=== PATIENT | female | born 2000 | race Caucasian/White ===

== ENCOUNTER → 2020-05-13 15:47 | Outpatient (CLI) | payer OTHER, SELFPAY ==
[2020-05-13 17:30] LABS: Glucose Challenge Gest 1H 50g 98 mg/dL (70-140)
[2020-05-13 17:34] LABS: Color, Urine Yellow (Yellow); Glucose, Dipstick Normal (Normal); Ketone-Dipstick 5 mg/dl (Negative); Leukocyte Esterase-Dipstick Negative /ul (Negative); Nitrite-Dipstick Negative (Negative); Occult Blood-Urine Negative /ul (Negative); Protein-Dipstick 15 mg/dl (Negative); Urine Bilirubin Dipstick Negative (Negative); Urine Clarity Clear (Clear); Urine Urobilinogen Normal (Normal)
[2020-05-13 17:40] LABS: Absolute Lymphocyte Count 1.59 X10^3/uL (0.83-4.51); Absolute Neutrophil Count 7.7 X10^3/uL (2.0-7.7); Basophil# 0.02 X10^3/uL; Basophil% 0.2 % (0-1); Eosinophil# 0.08 X10^3/uL; Eosinophils% 0.8 % (0-5); Hematocrit 36.4 % (37-47); Hemoglobin 12.1 g/dL (12.0-15.0); Lymphocyte # 1.59 X10^3/ul (4.0); Lymphocyte % 16.2 % (19-41); Mean Corp Hgb Conc 33.2 g/dL (32-36); Mean Corpuscular Hgb 32.3 pg (27.0-32.0); Mean Corpuscular Volume 97.1 fL (81-99); Mean Platelet Vol. 10.3 fl (6.2-12.0); Monocyte# 0.34 X10^3/uL; Monocyte% 3.5 % (0-10); NRBC Flagged by Analyzer 0 % (0-5); Neutrophil # 7.68 X10^3/uL (2.7-7.7); Neutrophil % 78.2 % (47-70); Platelet Count 247 K/mm3 (150-450); RBC Distribution Width CV 12.2 % (11.6-14.6); RBC Distribution Width SD 43.4 fl (35.1-43.9); Red Blood Count 3.75 M/mm3 (4.2-5.4); White Blood Count 9.8 K/mm3 (4.4-11.0)
[2020-05-13 17:48] LABS: Amphetamine Urine VISTA NEGATIVE (<1000 ng/mL); Barbiturate Urine VISTA NEGATIVE (< 200 ng/mL); Benzodiazepine Urine VISTA NEGATIVE (< 200 ng/mL); Cocaine Urine VISTA NEGATIVE (< 300 ng/mL); Ecstacy Urine VISTA NEGATIVE (< 500 ng/mL); Methadone Urine VISTA NEGATIVE (< 300 ng/mL); PCP Urine VISTA NEGATIVE (< 25 ng/mL); THC Urine VISTA NEGATIVE (< 50 ng/mL); Vista UDS pH Range 6
[2020-05-13 18:34] LABS: HIV - WCH Non-Reactive (Nonreactive); Hepatitis B Surface Antigen Non-Reactive (Nonreactive); Hepatitis C Antibody Non-Reactive (Nonreactive); Rubella IgG 228.1 IU/mL
[2020-05-16 01:11] LABS: Prenatal RPR NONREACTIVE (NONREACTIVE)
[2020-05-17 03:06] LABS: Chlamydia By Nucleic Acid AMP Negative (Negative)
[2020-05-17 06:33] LABS: Gonococcus By Nucleic Acid AMP Negative (Negative)
== END ==
PROVIDERS: Visit Provider Student in an Organized Health Care Education/Training Program
DX: Z34.82 Encounter for supervision of other normal pregnancy, second trimester (principal)
CPT/HCPCS: 36415; 80307; 81002; 82950; 85025; 86703; 86762; 86803; 87086; 87340; 87491; 87591

== ENCOUNTER → 2020-07-23 13:12 | Outpatient (CLI) | payer OTHER, SELFPAY | PROVIDERS: Visit Provider Student in an Organized Health Care Education/Training Program | DX: Z36.85 Encounter for antenatal screening for Streptococcus B (principal) | CPT/HCPCS: 87081 ==

== ENCOUNTER 2020-08-14 21:20 | Inpatient (IN) | payer OTHER, SELFPAY ==
[2020-08-14] VITALS (22 sets, daily range): BP systolic 78–127; BP diastolic 49–77; PULSE 81–102; TEMP 36.8–37.1; O2SAT 84–99; BMI 25.4
--- NOTE | 2020-08-14 21:29 | PCM.HPOB.BLA ---
- Problem List (1) 39 weeks gestation of Status: Acute History and Physical Date of Admission: 08/14/20 ACOG ANTEPARTUM RECORD - HISTORY AND PHYSICAL (08/14/2020) Name: NENA STARK History of this : This is a 19 year old presents at 39 wks + 5 days gestation with c/o contractions. OB Physician: Mari Croft Alicia's Physician: Dr Aris Eubanks. ...................................................................... : [birth year] Age: 19 Address: [address] [place] [address] Phone: ([phone] Insurance Carrier: [email or web address] [id number] Emergency Contact: XAVIER STARK/MOTHER [phone] ...................................................................... Final RADHA: 08/16/20 By Ultrasound: PARITY: (G-Total Pregnancies P-Fullterm,Premature,Induced AB,Spont AB, Ectopics, Multiple,Living) RADHA CONFIRMATION: By LMP: 10/06/19 Final RADHA: 08/16/20 OB PROBLEM LIST: ALLERGIC TO AMOXICILLIN Needs Jun 22 or Jul 27 Childbirth Class. 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 Illicit Drug Use - denies use of street drugs Sexual Activity - never been Residence - Lives w/parents Place of - [place] Hours Worked - 40 hours per week Spouse-Sig Other Name - Mark Ayala Spouse-Sig Other Occupation - construction framing PRIOR DELIVERY HISTORY DEL DATE GEST LAB WT LB WT OZ TYPE ANES LABOR TX ANTEPARTUM FLOW CHART VISIT GE RTC FU F F MN U U DATE WK MD WKS HT PN HR M SS BP ED WT MN GL D EF ST __ ____ ___ __ __ ___ __ __ __ ___ __ __ __ ___ __ Jul 39 CM 1 39 V + + 124/82 0 134 tr ne 4 60 -2 19 Roberto 38 CM 1 38 V + + 118/62 0 134 - - 3 60 -2 14 Roberto 37 CM 1 37 V + + 116/72 0 132 - - 3 60 -2 05 Roberto 36 CM 1 36 V + + 106/74 0 131 ne ne 3 60 -3 29 Dec 35 CM 1 35 V + + 122/62 0 130 - - 23 Dec 34 JMW 1 36 + + 100/76 0 130 - - 10 Dec 32 CM 2 32 V + + 116/68 0 126 - - 23 Nov 30 CM 2 30 + + 104/72 0 126 tr ne Jun 15 CM 2 28 + + 114/66 0 122 - - May 13 CM 2 26 + + 100/74 0 119 tr - ANTEPARTUM NOTE(S): Aug 13 2020: Aug 06 2020: Aug 01 2020: Jul 23 2020: Jul 16 2020: Jul 10 2020: US, Good FM Jun 27 2020: Jun 10 2020: May 27 2020: May 13 2020: feeling well. Labs, NOB papers and CT/NG done today. AM COMPREHENSIVE ANTEPARTUM NOTE(S): Aug 13 2020: Nena is here for PNV. Feeling well with good FM. No edema noted. No complaints or concerns. Urine tr and neg. LSS Aug 13 2020: 39/4w visit. Membrane sweep done. F/u 1w. CM Aug 06 2020: Nena reporting good FM. No Sx labor. She is asking for a vag exam. kb Aug 06 2020: 38/4w visit. Growth today AGA. CE unchanged. F/u 1 w. CM Aug 01 2020: GBS negative 07/23/20. Reports good FM. Ctx's occurring, but not every day. Denies leaking fluid. Denies spotting. Sent to [facility] to pre-register. kb Aug 01 2020: 37/6w visit. Occasional contractions. Feeling well otherwise. F/u 1w CM Jul 23 2020: Nena is here for PNV. States she is feeling real good. No complaints. Good FM. No issues with edema. LARC form signed and declined. Urine dipped neg and neg today. LSS Jul 23 2020: 36/4w visit. Declined larc. 3 cm. GBS done today. F/u 1w. US week of 08/07. CM Jul 16 2020: Nena reports feeling well. Good FM. Voicing no concerns. Jul 16 2020: 35/4w visit. Keep RADHA of 08/16/20 based on LMP/ACOG recommendations. Consider growth at 38w. F/u 1w. CM Jul 10 2020: Nena is here for a PNV/ US. Good FM. No edema present. No concerns expressed at this time. MK Jun 27 2020: Nena is doing well. Good FM. Voicing no concerns. kbm Jun 27 2020: 32/6w visit. Late PNC - Growth at 34w, scheduled per pt. F/u 2w. cm Jun 10 2020: TELEHEALTH NOB-- Nena is a 19 yo G 1 P 0 with RADHA 1-29-21 per chart although she states Aug 06-. She plans a vag del at [facility] uncertain of epidural, using Dr Aris Eubanks for post discharge ped care. She is not sure of feeding method yet. a winter baby when influenza, RSV, Covid are high is enc. 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 She plans a 12 week KAREN. FOB is Mark Ayala who works in [employer]. Nena lives w her parents. She is allergic to Amoxicillin. She has NKA to latex, food or the environment. Her diet is balanced w occ coffee and 2+ liters of water daily. She's a lifetime non smoker, denies street drug use and drinks alcohol occ but not in pg. She is active w her job and at home. Walking 20 min most days enc. Genetics Screening form completed at prev visit noting no family issues and genetic testing is declined. Warning signs in pg discussed along w reaching the office after hours, wearing the seatbelt really low on her abd, lifting restriction of 20-25# and the importance of protein in her diet w understanding voiced. They have no cats but she is aware of litter box issues. She has a copy of What to Expect. EPDS score zero. Nena has had a varicella vaccine. Office Childbirth and classes explained and suggested. Enc to call w any concerns. Visit took 1/2 h. Gabriela DE JESUS. Jun 10 2020: Nena is here for PNV. States she feels good with good FM. No edema noted. No problems with N/V. Urine dipped tr and neg. Had her telehealth today. No concerns at this time. LSS Jun 10 2020: 30/3w visit. Feeling well. F/u 2w. Growth at 34w. CM May 27 2020: Nena reporting good FM. Voicing no concerns. Needs televisit w/nurse. kbm May 27 2020: 28/3w visit. Feeling well. Labs reviewed and wnl. Declines TDap. Growth us 34w for late PNC. NOB visit scheduled. F/u 2w CM May 13 2020: 26/3w visit. Patient feeling much more settled with , smiling and happy. Denies genetic disorders. Declines genetic screening and carrier screening. GC/CT done today along with PNP and glucola. Will plan for 34w US for growth due to late PNC. Mom with patient today. f/u 2w. CM May 06 2020: Nena is a 19 yr old here for evaluation of secondary amenorrhea. Menarche age 12. Periods monthly until LMP in October, which was salesperson jewelry and shorter than her typical. Last normal period end of September. Also reporting abdominal pain which comes and goes. Remembers constipation in the beginning, but that has resolved. States she has never been sexually active. In reviewing her Hx, asked if anything unusual happened in September or October to which she replied she had gone to [facility] for 10 days and did a lot of drinking. No medical problems. No abdominal surgeries. Non-smoker. kbm REVIEW OF SYSTEMS: GENERAL - Denies fever, or chills SKIN - Denies rash, new skin lesions, or change in moles EYES - Denies blurred vision, or change in visual acuity EARS - Denies ear pain, or difficulty hearing NOSE - Denies nasal congestion, discharge, or bleeding MOUTH - Denies sore throat, or difficulty swallowing NECK - Denies pain or swelling RESPIRATORY - Denies shortness of breath, cough, wheezing CARDIOVASCULAR - Denies palpitations, chest pain, orthopnea, PND, peripheral edema, syncope or claudication GASTROINTESTINAL - Denies nausea, vomiting, diarrhea, constipation, Denies abdominal pain, melena and or bright red blood GENITOURINARY - Denies dysuria, frequency of urination, urgency, or hesitancy MUSCULOSKELETAL - Denies joint or muscle pain, or back pain NEUROLOGICAL - Denies localized numbness, weakness, or tingling PSYCHIATRIC - Denies depression, anxiety, substance abuse or suicide attempts ENDOCRINE - Denies heat or cold intolerance, weight loss or gain, increasing thirst HEMATO-IMMUNOLOGIC - Denies easy bruising, bleeding, oral ulcerations or recurrent infections GENETICS SCREENING: Age 35+ years: No Thalassemia: No Neural Tube Defect: No Down Syndrome: No ASHLY-SACHS: No Sickle Cell Disease: No Hemophilia: No Musc. Dystrophy: No Cystic Fibrosis: No-declines screening [place] Chorea: No Mental Retardation: No Fragile X: No Other genetic: No Other defects: No SABs/still births: No Drugs since LMP: No INFECTION HISTORY: High risk AIDS: No High risk Hepatitis: No Exposed to TB: No Exposed to Herpes: No Rash/viral illness since LMP: No History of STD: No MENSTRUAL HISTORY: *Menses Amount/Duration: 4-5 daysMenses Regularity: missed periodsMenarche (Age Onset): 12* PAST SUMMARY: PARITY: 1. Total Pregnancies............ 1 2. Full Term Pregnancies........ 0 3. Premature.................... 0 4. Abortions - Induced.......... 0 5. Abortions - Spontaneous...... 0 6. Ectopics..................... 0 7. Multiple Births.............. 0 8. Living Children.............. 0 LAB TEST(S) ORDERED SINCE:11/20/19 05/17/2020 CHLAMYDIA/GC MO APTIMA 05/16/2020 RPR 05/16/2020 CULTURE, URINE 05/13/2020 URINE DRUG SCREEN (VISTA) 05/13/2020 URINALYSIS, ROUTINE (DIPSTICK) 05/13/2020 RUBELLA IGG 05/13/2020 T AND S-NO CHARGE W/PNP 05/13/2020 HIV - [facility] 05/13/2020 HEPATITIS C ANTIBODY 05/13/2020 HEPATITIS B SURFACE ANTIGEN 05/13/2020 GLUCOSE CHALLENGE GEST 1H 50G 05/13/2020 CBC W/DIFF, AUTOMATED 07/26/2020 CULTURE, GROUP B STREPTOCOCCUS == ==== Order Observation Description Value Ref_Range A* Site == ==== CULTURE, GROUP NOTE JARA CHLAMYDIA/GC NA NOTE JARA CHLAMYDIA/GC NA CHLAMY,NUC ACID Negative Negative LC CHLAMYDIA/GC NA GC BY NUC ACID Negative Negative LC Performed at: =[facility] [id number] Human Performance Technologist: Rashmi Corbin MD, Phone: [phone] CULTURE, URINE NOTE JARA RPR NOTE JARA RPR RPR NONREACTIVE NONREACTIVE ML HEPATITIS C ANT NOTE JARA HEPATITIS C ANT HEPATITIS C AB Non-Reactive Nonreactive ML Non Reactive: < 0.8 Equivocal: >/= 0.8 to < 1.0 Reactive: >/= 1.0 The CDC recommends that a reactive/equivocal HCV antibody result be followed up by the HCV Nucleic Acid Amplification test (322654) HEPATITIS B ALANA NOTE JARA HEPATITIS B ALANA HEPB SURFACE AG Non-Reactive Nonreactive ML HIV - [facility] NOTE JARA HIV - [facility] HIV - [facility] Non-Reactive Nonreactive ML RUBELLA IGG NOTE JARA RUBELLA IGG RUBELLA IGG 228.1 IU/mL ML Antibody results Interpretation of Immune Status < 5 IU/ml Presumed Non-immune 5 - < 10 IU/ml Equivocal > or = 10 IU/ml Presumed Immune Reason for Type AND Screen/Red Cells: Surgery? [facility]~[address] [place], [address]~ T AND BLOOD TYPE GEL A POSITIVE N ML T AND AB SCREEN GEL NEGATIVE N ML URINE DRUG SCRE NOTE JARA URINE DRUG SCRE TO BE CONFIRMED ML CONFIRMATORY TESTING FOR ALL POSITIVE URINE DRUG SCREEN RESULTS WILL ONLY BE SENT OUT UPON PHYSICIAN ORDER. VISTA Urine Drug Screen methods provide only preliminary analytical test results. A more specific alternate chemical method must be used in order to obtain a confirmed analytical result. Gas chromatography/mass spectrometery (GC/MS) is the preferred confirmatory method. Clinical consideration and professional judgement should be applied to any drug of abuse test result, particularly when preliminary positive results are used. URINE TCA TESTING MUST BE ORDERED SEPARATELY. USE TEST MNEMONIC: UTCA URINE DRUG SCRE VISTA UDS PH 6 ML URINE DRUG SCRE AMPHETAMINES NEGATIVE <1000 ng/mL ML URINE DRUG SCRE BARBITIURATES NEGATIVE < 200 ng/mL ML URINE DRUG SCRE BENZODIAZIPINE NEGATIVE < 200 ng/mL ML URINE DRUG SCRE COCAINE NEGATIVE < 300 ng/mL ML URINE DRUG SCRE ECSTACY NEGATIVE < 500 ng/mL ML URINE DRUG SCRE METHADONE NEGATIVE < 300 ng/mL ML URINE DRUG SCRE OPIATES NEGATIVE < 300 ng/mL ML URINE DRUG SCRE PCP NEGATIVE < 25 ng/mL ML URINE DRUG SCRE THC NEGATIVE < 50 ng/mL ML CBC W/DIFF, AUT NOTE JARA CBC W/DIFF, AUT WBC 9.8 K/mm3 4.4-11.0 ML CBC W/DIFF, AUT RBC 3.75 M/mm3 4.2-5.4 L ML CBC W/DIFF, AUT HGB 12.1 g/dL 12.0-15.0 ML CBC W/DIFF, AUT HCT 36.4 % 37-47 L ML CBC W/DIFF, AUT MCV 97.1 fL 81-99 ML CBC W/DIFF, AUT MCH 32.3 pg 27.0-32.0 H ML CBC W/DIFF, AUT MCHC 33.2 g/dL 32-36 ML CBC W/DIFF, AUT RDW CV 12.2 % 11.6-14.6 ML CBC W/DIFF, AUT RDW SD 43.4 fl 35.1-43.9 ML CBC W/DIFF, AUT PLT 247 K/mm3 150-450 ML CBC W/DIFF, AUT MPV 10.3 fl 6.2-12.0 ML CBC W/DIFF, AUT NEUT% 78.2 % 47-70 H ML CBC W/DIFF, AUT LY% 16.2 % 19-41 L ML CBC W/DIFF, AUT MONO% 3.5 % 0-10 ML CBC W/DIFF, AUT EO% 0.8 % 0-5 ML CBC W/DIFF, AUT BASO% 0.2 % 0-1 ML CBC W/DIFF, AUT IM GRAN % 1.100 % 0.0-0.9 H ML IG% - Immature Granulocytes (promyelocytes, myelocytes and metamyelocytes) > 1% indicates that a LEFT SHIFT is Present. CBC W/DIFF, AUT ABSOLUTE NEUT 7.7 X10 3/uL 2.0-7.7 ML CBC W/DIFF, AUT ABSOLUTE LYMPH 1.59 X10 3/uL 0.83-4.51 ML CBC W/DIFF, AUT NRBC, FLAGGED 0 % 0-5 ML URINALYSIS, ROU NOTE JARA URINALYSIS, ROU COLOR Yellow Yellow ML URINALYSIS, ROU CLARITY Clear Clear ML URINALYSIS, ROU GLUCOSE, UR Normal mg/dl Normal ML URINALYSIS, ROU BILIRUBIN URINE Negative mg/dL Negative ML URINALYSIS, ROU KETONE UR 5 mg/dl Negative H ML URINALYSIS, ROU SP.GR. DIPSTX 1.020 1.002-1.030 ML URINALYSIS, ROU PH UR 6.0 5.0 - 8.0 ML URINALYSIS, ROU PROT DIPSTX 15 mg/dl Negative H ML URINALYSIS, ROU UROBILI Normal mg/dl Normal ML URINALYSIS, ROU NITRITE UR Negative Negative ML URINALYSIS, ROU OCCULT BLOOD-UR Negative /ul Negative ML URINALYSIS, ROU LEUK ESTERASE Negative /ul Negative ML GLUCOSE CHALLEN NOTE JARA GLUCOSE CHALLEN GLU GEST 50G 1H 98 mg/dL 70-140 ML MOR Culture Group B Beta Streptococcus is not isolated. Urine Culture Culture exhibits no growth. PHYSICAL EXAMINATION Vital Signs Temp 98.3 F 08/14/20 19:49 Pulse 86 08/14/20 19:49 BP 110/76 08/14/20 19:49 Pulse Ox 98 08/14/20 19:49 Intake & Output 08/12/20 08/13/20 08/14/20 23:59 23:59 23:59 Weight: 61.2 kg General Appearence: 19 yo female in no acute distress Vital Signs: AF, VSS Heart: RRR without murmurs, rubs or gallops Lungs: CTA x 2 Breasts: deferred Abdomen: gravid Pelvis: Cervix: 4.5/90/-2 Presentation: cephalic Fetus: Size: EFW 3608 g at US on 08/06/20 (HC/AC 0.98) Movement: present Heart: 130, moderate variability, + accelerations, no decelerations A/P 19yo G1 @ 39 5/7wga in labor, Cat I FHR -Admit in labor -GBS neg -Pain management per patient request
[2020-08-14] MEDS: Lactated Ringers 1,000 ML 50 ML IV (21:38)
[2020-08-14] MEDS: Lactated Ringers 500 ML 999 ML IV ×2 (21:43→23:30)
[2020-08-14 21:59] LABS: Absolute Lymphocyte Count 2.38 X10^3/uL (0.83-4.51); Absolute Neutrophil Count 11.1 X10^3/uL (2.0-7.7); Basophil# 0.04 X10^3/uL; Basophil% 0.3 % (0-1); Eosinophil# 0.08 X10^3/uL; Eosinophils% 0.6 % (0-5); Hematocrit 35.3 % (37-47); Hemoglobin 12.4 g/dL (12.0-15.0); Lymphocyte # 2.38 X10^3/ul (4.0); Lymphocyte % 16.7 % (19-41); Mean Corp Hgb Conc 35.1 g/dL (32-36); Mean Corpuscular Hgb 33.3 pg (27.0-32.0); Mean Corpuscular Volume 94.9 fL (81-99); Mean Platelet Vol. 11.8 fl (6.2-12.0); Monocyte# 0.57 X10^3/uL; NRBC Flagged by Analyzer 0 % (0-5); Neutrophil # 11.09 X10^3/uL (2.7-7.7); Neutrophil % 77.6 % (47-70); Platelet Count 243 K/mm3 (150-450); RBC Distribution Width CV 12.2 % (11.6-14.6); RBC Distribution Width SD 42.2 fl (35.1-43.9); Red Blood Count 3.72 M/mm3 (4.2-5.4); White Blood Count 14.3 K/mm3 (4.4-11.0)
[2020-08-14] MEDS: fentaNYL-bupivacaine (epidural) 100 ML BAG EPIDURAL (23:17)
[2020-08-15] VITALS (36 sets, daily range): BP systolic 73–120; BP diastolic 37–78; PULSE 69–144; RESP 16; TEMP 36.3–37.6; O2SAT 84–98
[2020-08-15] MEDS: Lactated Ringers 500 ML 999 ML IV (03:37)
[2020-08-15] MEDS: fentaNYL-bupivacaine (epidural) 100 ML BAG EPIDURAL (05:04)
[2020-08-15] MEDS: Lactated Ringers 1,000 ML 200 ML IV (05:04)
[2020-08-15] MEDS: Oxytocin 30 units/NS 500 ml 30 UNITS/500 ML IV.SOLN 334 UNITS IV (09:30)
--- NOTE | 2020-08-15 09:51 | PCM.OPRPT ---
Vaginal Delivery Amniotic Membrane Rupture Type: Spontaneous Amniotic Fluid Description: Lightly stained meconium Final RADHA: 08/15/20 Final RADHA Source: LMP Gestational age: 40 Weeks and 0 Days Date of Procedure: 08/15/20 Pre-Operative Diagnosis: Bell intrauterine , labor Post-Operative Diagnosis: Bell intrauterine , labor Surgery/ Procedure Performed: Spontaneous Vaginal Delivery Type of Anesthesia: Epidural Description of Procedure: Spontaneous vaginal delivery of viable male. No nuchal cord. Baby to mom. Cord clamped and cut. Spontaneous delivery of placenta. Second degree perineal laceration repaired in usual fashion. Right labia reapproximated with one figure of eight stitch. Hemostatic. EBL 400cc. Infant A gender: Male (1 minute): 8 (5 minute): 9
[2020-08-15] MEDS: 0.9% Saline Lock 10 ML Syringe IV (12:32)
--- NOTE | 2020-08-15 13:45 | NURSING ---
Void x 1 qs. Missed hat.
--- NOTE | 2020-08-15 16:56 | NURSING ---
Reports qs void in bathroom which was not caught in hat.
[2020-08-15] MEDS: Ibuprofen 600 MG Tablet PO (21:17)
[2020-08-16 00:18] VITALS: BP 95/54; PULSE 88; RESP 16; TEMP 36.7
[2020-08-16 03:14] VITALS: BP 115/77; PULSE 100; RESP 14; TEMP 36.4
[2020-08-16] MEDS: Acetaminophen 500 MG Tablet 1000 MG PO (03:18)
[2020-08-16 04:41] VITALS: BP 112/66; PULSE 63; RESP 16; TEMP 36.3
--- NOTE | 2020-08-16 07:30 | DCINST_ITS ---
<Mari Begum - Last Filed: 08/16/20 07:30> Discharge Diet: No Restrictions Discharge Activity: Return to Normal Activity May resume sexual activity in: 4-6 weeks, 6-8 weeks Weight Bearing Status: Weight bearing as tolerated Call your doctor if your incision/area has: Continuous Slow Oozing, Sudden Increased Bleeding Call your doctor if you observe: Fever of 101 or Higher, Coldness, Increased Pain, Inability to have a bowel movement, Using more than one pad per hour Additional Instructions: If you experience any of the following, contact your healthcare provider. * Bleeding that soaks a pad every hour for 2 hours * Fever 100.4 or higher * Unrelieved incision or abdominal pain * Swelling, redness, discharge or bleeding from your incision or episiotomy site * Your incision begins to separate * Problems urinating (including inability to urinate or burning while urinating). * Visual changes * Severe headache * Flu-like symptoms * Pain or redness in one of both of your breasts * Pain, warmth, tenderness or swelling in your legs, especially the calf area * Frequent nausea and vomiting * Symptoms of depression or anxiety If you experience any of the following, call 911 or go to the nearest Emergency Room. * Chest pain * Problems breathing * Seizure activity * Partial or complete paralysis of a body part, slurred speech, weakness or drooping of the face, or a sudden inability to walk or hold your balance Allergies/Adverse Reactions: Allergies amoxicillin Allergy (Severe, Verified 08/14/20 20:07) Shortness of breath Medications to take at Discharge Pnv No.95/Ferrous Fum/Folic AC [ Caplet] 1 tab PO DAILY 08/14/20 Please Follow Up With: Mari Begum DO When: Telehealth visit 2weeks, in person 6 weeks Primary Care Physician: Aris Eubanks MD [Primary Care Provider] - Test Results: Test results from this visit will be discussed in further detail at your follow- up appointment, if applicable. <Zaid Begum - Last Filed: 08/16/20 08:07> Additional Instructions: If you experience any of the following, contact your healthcare provider. * Bleeding that soaks a pad every hour for 2 hours * Fever 100.4 or higher * Unrelieved incision or abdominal pain * Swelling, redness, discharge or bleeding from your incision or episiotomy site * Your incision begins to separate * Problems urinating (including inability to urinate or burning while urinating). * Visual changes * Severe headache * Flu-like symptoms * Pain or redness in one of both of your breasts * Pain, warmth, tenderness or swelling in your legs, especially the calf area * Frequent nausea and vomiting * Symptoms of depression or anxiety If you experience any of the following, call 911 or go to the nearest Emergency Room. * Chest pain * Problems breathing * Seizure activity * Partial or complete paralysis of a body part, slurred speech, weakness or drooping of the face, or a sudden inability to walk or hold your balance Test Results: Test results from this visit will be discussed in further detail at your follow- up appointment, if applicable.
--- NOTE | 2020-08-16 07:31 | PN.OBGYN_ITS ---
Patient Problems: Active and Suspected Problems 39 weeks gestation of (Acute) Subjective: PPD#1 Feeling well. Lochia minimal. Pain controlled. - Physical Exam Vitals/I&O's: Vital Signs Temp Pulse Resp BP Pulse Ox 97.4 F L 63 16 112/66 97 08/16/20 04:41 08/16/20 04:41 08/16/20 04:41 08/16/20 04:41 08/15/20 16:30 Oxygen Delivery Method Room Air Weight: 61.2 kg Body Mass Index (BMI) 25.4 Intake and Output for Last 24 Hours 08/14/20 08/15/20 08/16/20 23:59 23:59 23:59 Intake Total 567.50 / 567.50 3678.34 / 3678.34 Output Total 800 / 800 Balance 567.50 / 567.50 2878.34 / 2878.34 General: Alert, Oriented x3, No apparent distress HEENT: Atraumatic, Normocephalic Neck: Supple Lungs: Normal air movement Cardiovascular: Regular rate Abdomen: Soft, Non Tender - uterus 2 cm below umbilicus Extremities: No clubbing, No edema Neurological: Cranial nerves II-XII grossly intact Psych/Mental Status: Normal Affect Current Medications Acetaminophen (Acetaminophen 500 Mg Tablet) 1,000 mg PO Q8H PRN PRN PRN Reason: Pain Score 1-3 Last Admin: 08/16/20 03:18 Dose: 1,000 mg Documented by: Bisacodyl (Bisacodyl 10 Mg Suppository) 10 mg RECTAL UD PRN PRN Reason: If no BM Dibucaine (Dibucaine 30 Gm Tube) 1 applic TOPICAL TID PRN PRN; Protocol PRN Reason: Discomfort Hydrocortisone (Hydrocortisone 2.5% Crm) 1 applic TOPICAL TID PRN PRN; Protocol PRN Reason: Discomfort Ibuprofen (Ibuprofen 600 Mg Tablet) 600 mg PO Q6H PRN PRN PRN Reason: Pain Score 1-3 Last Admin: 08/15/20 21:17 Dose: 600 mg Documented by: Methylergonovine Maleate (Methylergonovine 0.2 Mg/Ml Ampul) 0.2 mg IM X1 PRN PRN Reason: Excess bleeding/uterine atony Ondansetron HCl (Ondansetron 4 Mg/2 Ml Vial) 4 mg IV Q4H PRN PRN PRN Reason: Nausea Senna/Docusate Sodium (Senna/Docusate Sodium 1 Tablet) 1 - 2 tablet PO DAILY [place] N PRN PRN Reason: Constipation Simethicone (Simethicone 80 Mg Tablet) 80 mg PO PCHS PRN PRN Reason: Indigestion/Stomach pain Sodium Chloride (0.9% Saline Lock 10 Ml Syringe) 5 - 15 ml IV UD PRN PRN Reason: SALINE FLUSH Last Admin: 08/15/20 12:32 Dose: 10 ml Documented by: Zolpidem Tartrate (Zolpidem Tartrate 5 Mg Tablet) 5 mg PO QHS PRN PRN PRN Reason: Insomnia Medical Necessity - Tobacco Use Smoking Status: Never smoker Assessment/Plan All Active Problems 39 weeks gestation of (Acute) PPD#1 s/p . Uncomplicated . Home today.
[2020-08-16 07:57] VITALS: BP 106/71; PULSE 80; RESP 20; TEMP 36.3; O2SAT 98
[2020-08-16 08:06] VITALS: BP 93/55; PULSE 98; RESP 18; TEMP 36.8; O2SAT 96
[2020-08-16 14:00] VITALS: BP 93/55; PULSE 98; RESP 18; TEMP 36.8; O2SAT 96
== END 2020-08-16 15:30 | disposition home or self-care (01) | DRG 807 ==
LOC: WPOUT 21:24 → WP 21:24
PROVIDERS: Obstetrics & Gynecology; Admitting Provider Student in an Organized Health Care Education/Training Program; PCP Family Medicine; Visit Provider Student in an Organized Health Care Education/Training Program
DX: O77.0 Labor and delivery complicated by meconium in amniotic fluid (principal); Z37.0 Single live birth; Z3A.40 40 weeks gestation of pregnancy; O70.1 Second degree perineal laceration during delivery
CPT/HCPCS: 59025; 59050; 85025; 86850; 86900; 86901; 99218; J7120; A4216; G0378